=== PATIENT | male | born 1950 | race Caucasian/White ===

== ENCOUNTER 2018-11-28 08:13 | Emergency (ER) | payer MEDICARE, BC ==
--- NOTE | 2018-11-28 09:04 | EDM.PDOC ---
ED HPI GENERAL MEDICAL PROBLEM - General Chief Complaint: Fever Stated Complaint: SORE THROAT Time Seen by Provider: 11/28/18 08:45 Source of Information: Reports: Patient History Limitations: Reports: No Limitations - History of Present Illness INITIAL COMMENTS - FREE TEXT/NARRATIVE: 60-year-old male who has had cold-like symptoms with a cough and sore throat for the past 48 hours, thought he was feeling better yesterday and ran a 5K race but today his throat is worse and his wanted him checked for strep throat. Also some low-grade intermittent fevers. No nausea or vomiting, shortness of breath or rash. Associated Symptoms: Reports: Cough, Fever/Chills. Denies: Shortness of Breath - Related Data Allergies Allergy/AdvReac Type Severity Reaction Status Date / Time No Known Allergies Allergy Verified 11/28/18 08:41 Home Meds: Home Meds NK [No Known Home Meds] 11/28/18 [History] Past Medical History - Past Surgical History HEENT Surgical History: Reports: Eye Surgery, Tonsillectomy Social & Family History - Tobacco Use Smoking Status *Q: Never Smoker ED ROS ENT - Review of Systems Review Of Systems: See Below Constitutional: Reports: Fever, Chills, Malaise HEENT: Reports: Throat Pain. Denies: Rhinitis Respiratory: Reports: Cough. Denies: Shortness of Breath Cardiovascular: Denies: Chest Pain GI/Abdominal: Denies: Nausea, Vomiting Skin: Reports: No Symptoms Neurological: Denies: Headache ED EXAM, ENT - Physical Exam Exam: See Below Exam Limited By: No Limitations General Appearance: Alert, No Apparent Distress Eye Exam: Bilateral Eye: Normal Inspection Ears: Normal TMs Mouth/Throat: Other (Mild pharyngeal erythema with a few palatal petechiae, no exudate) Head: Atraumatic Neck: No: Lymphadenopathy (R), Lymphadenopathy (L) Respiratory/Chest: No Respiratory Distress, Lungs Clear Neurological: Alert, Oriented Course - Vital Signs Last Recorded V/S: Last Vital Signs Temp 98.6 F 11/28/18 08:43 Pulse 67 11/28/18 08:43 Resp 13 11/28/18 08:43 BP 172/104 H 11/28/18 08:43 Pulse Ox 97 11/28/18 08:43 - Orders/Labs/Meds Orders: Active Orders 24 hr Category Date Time Status CULTURE STREP A CONFIRMATION [RM] Stat Lab 11/28/18 08:47 Results STREP SCRN A RAPID W CULT CONF [RM] Stat Lab 11/28/18 08:47 Results - Re-Assessments/Exams Free Text/Narrative Re-Assessment/Exam: 11/28/18 09:04 A rapid strep was obtained. 11/28/18 09:29 Strep was negative. Patient likely has a viral URI and will return if worsening. No treatment at this time. Departure - Departure Time of Disposition: 09:37 Disposition: Home, Self-Care 01 Clinical Impression: Viral URI with cough - Discharge Information Instructions: Viral Respiratory Infection Referrals: PCP,None [Primary Care Provider] - Forms: ED Department Discharge Care Plan Goals: Rest, fluids, increase activity as tolerated and return anytime if worsening such as joint pains or rash. Consider rechecking in 2-3 days if not improving. - My Orders Last 24 Hours: My Active Orders 11/28/18 08:47 CULTURE STREP A CONFIRMATION [RM] Stat STREP SCRN A RAPID W CULT CONF [RM] Stat - Assessment/Plan Last 24 Hours: My Active Orders 11/28/18 08:47 CULTURE STREP A CONFIRMATION [RM] Stat STREP SCRN A RAPID W CULT CONF [RM] Stat
== END 2018-11-28 09:37 | disposition home or self-care (01) ==
LOC: JP.ED 08:13
DX: J06.9 Acute upper respiratory infection, unspecified (principal)
CPT/HCPCS: 87081; 87880-QW; 99283